=== PATIENT | female | born 1995 | race Caucasian/White ===

== ENCOUNTER 2019-10-10 08:00 | Inpatient (IN) | payer OTHER ==
--- NOTE | 2019-10-10 09:14 | HP ---
Past Medical History - Admission Chief Complaint: 24 yo here for inductrion grade 3 placenta. History Source: Patient Limitations to Obtaining History: No Limitations - Past Surgical History Past Surgical History: Yes: None Hx Myomectomy: No Hx Transabdominal Cerclage: No - Smoking History Smoking history: Never smoked Have you smoked in the past 12 months: No - Alcohol/Substance Use Hx Alcohol Use: No Home Medications - Allergies Allergies/Adverse Reactions: Allergies Allergy/AdvReac Type Severity Reaction Status Date / Time No Known Allergies Allergy Verified 10/10/19 08:31 - Home Medications Home Medications: Ambulatory Orders Vitamins (Sjr) - 1 tab PO DAILY 10/10/19 Review of Systems - Review of Systems Constitutional: reports: No Symptoms Eyes: reports: No Symptoms HENT: reports: No Symptoms Neck: reports: No Symptoms Cardiovascular: reports: No Symptoms Respiratory: reports: No Symptoms Gastrointestinal: reports: No Symptoms Genitourinary: reports: No Symptoms Breasts: reports: No Symptoms Reported Musculoskeletal: reports: No Symptoms Integumentary: reports: No Symptoms Neurological: reports: No Symptoms Endocrine: reports: No Symptoms Hematology/Lymphatic: reports: No Symptoms Psychiatric: reports: No Symptoms Assessment/Plan imp IUP at 39+ weeks grade 3 placenta plan induction of labor.
[2019-10-10] MEDS ORDERED: DINOPROSTONE 10 MG VAGINAL SUPPOSITORY VG ONE (09:16)
[2019-10-10] MEDS: ELECTROLYTE-148 SOLN 1,000 ML IV SCH (10:00)
[2019-10-10 10:10] VITALS: BMI 29.6
[2019-10-10 10:42] LABS: BASO % 0.3 % (0-2.0); HEMATOCRIT 35.6 % (32.4-45.2); HEMOGLOBIN 12.4 GM/dL (10.7-15.3); LYMPH % 21.6 % (8-40); MCH 34.5 pg (25.7-33.7); MCHC 34.9 g/dl (32.0-36.0); MEAN CELL VOLUME 98.8 fl (80-96); MEAN PLT VOLUME 8.7 fl (7.5-11.1); MONO % 8.1 % (3.8-10.2); PLATELET COUNT 150 K/MM3 (134-434); RBC 3.61 M/mm3 (3.60-5.2); RDW 13.1 % (11.6-15.6); WHITE BLOOD COUNT 8.2 K/mm3 (4.0-10.0)
[2019-10-10 10:47] LABS: INR 0.91 (0.83-1.09); PROTHROMBIN TIME (PATIENT) 10.7 SEC (9.7-13.0)
[2019-10-10 10:50] LABS: ACTIVATED PTT 25.8 SECONDS (25.2-36.5)
[2019-10-10] MEDS ORDERED: OXYTOCIN 20 UNITS in 0.9% NS 20 UNIT/1,000 ML INFUS.BAG IV ONE (10:51)
[2019-10-10 11:01] LABS: CALCIUM 8.9 mg/dL (8.5-10.1); CREATININE 0.5 mg/dL (0.55-1.3); POTASSIUM 3.8 mmol/L (3.5-5.1)
[2019-10-10 11:05] LABS: BLOOD UREA NITROGEN 9.5 mg/dL (7-18)
[2019-10-11] MEDS ORDERED: DINOPROSTONE 10 MG VAGINAL SUPPOSITORY VG ONE ×2 (00:40→12:57)
--- NOTE | 2019-10-11 00:50 | PN ---
Progress Note (short form) - Note Progress Note: 24 yo , EGA 39+ weeks with placental insufficiency on cervidil induction VSS, afebrile EFM - Baseline 140/min, moderate variability, accelerations, no decelerations Tocos - Irregular Pelvic - Closed/long/posterior. Plan - Full term gestation on cervidil ripening Cervidil replaced Anticipate vaginal delivery.
[2019-10-11] MEDS ORDERED: PROMETHAZINE HCL 25 MG/1 ML VIAL IVPB ONE ×3 (03:45→23:51)
[2019-10-11] MEDS ORDERED: BUTORPHANOL TARTRATE 1 MG/ML VIAL IVPB ONE ×3 (03:45→23:51)
[2019-10-11] MEDS ORDERED: BUTORPHANOL TARTRATE 2 MG/ML VIAL ONE ×3 (03:55→23:55)
[2019-10-11] MEDS ORDERED: PROMETHAZINE HCL 25 MG/1 ML VIAL ONE ×3 (03:56→23:56)
--- NOTE | 2019-10-11 12:53 | PN ---
Progress Note (short form) - Note Progress Note: 24 y/o at 39+ weeks with grade 3 placenta undergoing IOL. Tracing category 1 Occasional contractions VE: /-3, medium consistency Plan: Cervidil replaced Continue monitoring Reassess
[2019-10-11] MEDS: ELECTROLYTE-148 SOLN 1,000 ML IV SCH (12:57)
[2019-10-11] MEDS ORDERED: OXYTOCIN 30 UNITS in 0.9% NS 30 UNIT/500 ML INFUS.BAG IVPB SCH (23:45)
--- NOTE | 2019-10-11 23:51 | PN ---
Progress Note (short form) - Note Progress Note: 24 y/o at 39+ weeks with grade 3 placenta undergoing IOL. Patient c/o increasing pain. Tracing category 1 Irregular contractions VE: /-3 Plan: Start Pitocin Stadol & phenergan Continue monitoring Reassess
[2019-10-11] MEDS ORDERED: OXYTOCIN 30 UNITS in 0.9% NS 30 UNIT/500 ML INFUS.BAG IVPB ONE (23:56)
[2019-10-12] MEDS ORDERED: LIDOCAINE HCL 1% PRESERVATIVE FREE - 30ML VIAL ONE (05:46)
[2019-10-12] MEDS ORDERED: OXYTOCIN 20 UNITS in 0.9% NS 20 UNIT/1,000 ML INFUS.BAG IV ONE (05:46)
--- NOTE | 2019-10-12 05:56 | PN ---
Progress Note (short form) - Note Progress Note: 24 y/o at 39+ weeks with grade 3 placenta undergoing IOL. Patient c/o rectal pressure. Tracing: FHR 140 bpm, moderate variablity, positive accelerations, occasional variable decelerations Contractions q2-3 min VE: 9/90/0 Plan: Contiue Pitocin Anticipate
[2019-10-12] MEDS: OXYTOCIN 20 UNITS in 0.9% NS 20 UNIT/1,000 ML INFUS.BAG IV SCH (08:10)
[2019-10-12] MEDS ORDERED: IBUPROFEN 600 MG TABLET (FP) PO ONE (08:28)
[2019-10-12] MEDS ORDERED: ACETAMINOPHEN 325 MG TABLET (FP) ONE (08:28)
[2019-10-12] MEDS: ACETAMINOPHEN 325 MG TABLET (FP) PO PRN (08:35)
[2019-10-12] MEDS: IBUPROFEN 600 MG TABLET (FP) PO PRN (08:35)
[2019-10-12] MEDS ORDERED: BENZOCAINE 28 GM HEMORRHOIDAL OINTMENT TP PRN (08:46)
[2019-10-12] MEDS ORDERED: METHYLERGONOVINE MALEATE 0.2 MG/1 ML AMP IM PRN (08:46)
[2019-10-12] MEDS ORDERED: BISACODYL 10 MG SUPP.RECT RC PRN (08:46)
[2019-10-12] MEDS ORDERED: BENZOCAINE 20% 57 GM BOTTLE TP PRN (08:46)
[2019-10-12] MEDS ORDERED: WITCH HAZEL 50% (TUCKS) 40 PAD/JAR PAD TP PRN (08:46)
--- NOTE | 2019-10-12 08:46 | PN ---
Delivery - Delivery Vaginal Delivery: No Problems Type of Anesthesia: None Episiotomy/Laceration: 1st degree EBL (cc): 300 Delivery, Single - Stages of Labor Placenta: Yes: Spontaneous - Condition of Infant Infant Gender: Male Position: Left, OA - 1 Minute Total Score: 9 5 Minutes Total Score: 9 - Feeding Plan Initial Plan: Elected not to breastfeed exclusively throughout hospitalization
[2019-10-12] MEDS ORDERED: diphenhydrAMINE HCL 25 MG CAPSULE (FP) PO ONE ×2 (10:55→15:00)
[2019-10-12] MEDS: PRENATAL VITAMINS W/ FOLIC ACID TABLET (FP) PO SCH (11:28)
[2019-10-13 07:58] LABS: BASO % 0.2 % (0-2.0); EOS % 0.6 % (0-4.5); HEMATOCRIT 30.8 % (32.4-45.2); HEMOGLOBIN 10.5 GM/dL (10.7-15.3); LYMPH % 15.5 % (8-40); MCH 33.5 pg (25.7-33.7); MEAN CELL VOLUME 98.7 fl (80-96); MEAN PLT VOLUME 8.2 fl (7.5-11.1); MONO % 5.7 % (3.8-10.2); PLATELET COUNT 140 K/MM3 (134-434); RBC 3.12 M/mm3 (3.60-5.2); RDW 13.1 % (11.6-15.6); WHITE BLOOD COUNT 11.7 K/mm3 (4.0-10.0)
--- NOTE | 2019-10-13 09:14 | PN ---
Progress Note (short form) - Note Progress Note: PPD#1: patient comfortable; s/p afebrile abdomen soft; non tender, firm lochia normal I/P: doing well; home in am; baby staying till tomorrow
[2019-10-13] MEDS: PRENATAL VITAMINS W/ FOLIC ACID TABLET (FP) PO SCH (09:49)
[2019-10-13] MEDS: IBUPROFEN 600 MG TABLET (FP) PO PRN (10:37)
[2019-10-13] MEDS: ACETAMINOPHEN 325 MG TABLET (FP) PO PRN (10:38)
[2019-10-13] MEDS: OXYTOCIN 20 UNITS in 0.9% NS 20 UNIT/1,000 ML INFUS.BAG IV SCH (12:00)
[2019-10-13] MEDS ORDERED: SENNOSIDES/DOCUSATE COMBO (SENNA PLUS) TABLET (UD) PO PRN (22:00)
[2019-10-14] MEDS: IBUPROFEN 600 MG TABLET (FP) PO PRN (08:06)
[2019-10-14] MEDS: ACETAMINOPHEN 325 MG TABLET (FP) PO PRN (08:06)
[2019-10-14] MEDS: PRENATAL VITAMINS W/ FOLIC ACID TABLET (FP) PO SCH (10:18)
[2019-10-14 10:47] VITALS: BP 107/69; PULSE 96; TEMP 97.8
--- NOTE | 2019-10-14 12:16 | PN ---
Post Progress Note Type of Delivery: Vital Signs: Vital Signs Temperature 97.8 F 10/14/19 10:00 Pulse Rate 96 H 10/14/19 10:00 Respiratory Rate 18 10/14/19 10:00 Blood Pressure 107/69 10/14/19 10:00 O2 Sat by Pulse Oximetry (%) 99 10/12/19 10:15 Breast Exam: Yes: Soft Uterus: Yes: Fundus Firm, Fundus below umbilicus, Non-tender Abdomen/GI: Yes: Abdomen soft, Tolerating PO Lochia: Yes: Rubra Lochia, amount: Small Extremities: Yes: Calves non-tender Perineum: Yes: Episiotomy Activity: Ambulating - Labs Labs: CBC WBC 11.7 K/mm3 (4.0-10.0) H 10/13/19 07:28 RBC 3.12 M/mm3 (3.60-5.2) L 10/13/19 07:28 Hgb 10.5 GM/dL (10.7-15.3) L 10/13/19 07:28 Hct 30.8 % (32.4-45.2) L 10/13/19 07:28 MCV 98.7 fl (80-96) H 10/13/19 07:28 MCH 33.5 pg (25.7-33.7) 10/13/19 07:28 MCHC 34.0 g/dl (32.0-36.0) 10/13/19 07:28 RDW 13.1 % (11.6-15.6) 10/13/19 07:28 Plt Count 140 K/MM3 (134-434) 10/13/19 07:28 MPV 8.2 fl (7.5-11.1) 10/13/19 07:28 Absolute Neuts (auto) 9.1 K/mm3 (1.5-8.0) H 10/13/19 07:28 Neutrophils % 78.0 % (42.8-82.8) 10/13/19 07:28 Lymphocytes % 15.5 % (8-40) D 10/13/19 07:28 Monocytes % 5.7 % (3.8-10.2) 10/13/19 07:28 Eosinophils % 0.6 % (0-4.5) 10/13/19 07:28 Basophils % 0.2 % (0-2.0) 10/13/19 07:28 Nucleated RBC % 0 % (0-0) 10/13/19 07:28 Assessment/Plan S/P , ppd # 2, stable Discharge home
--- NOTE | 2019-10-14 12:20 | DS ---
Physical Exam-[facility] Vital Signs: Vital Signs Temperature 97.8 F 10/14/19 10:00 Pulse Rate 96 H 10/14/19 10:00 Respiratory Rate 18 10/14/19 10:00 Blood Pressure 107/69 10/14/19 10:00 O2 Sat by Pulse Oximetry (%) 99 10/12/19 10:15 Constitutional: Yes: Well Nourished Eyes: Yes: WNL HENT: Yes: WNL Neck: Yes: WNL Cardiovascular: Yes: WNL Respiratory: Yes: WNL Gastrointestinal: Yes: WNL Renal/: Yes: WNL Pelvis: Yes: WNL External Genitalia: Yes: Normal Vaginal Exam: Yes: Normal Cervix: Yes: Normal Uterus: Yes: Normal Adnexa: Normal: Bilateral ....Post : Yes: Uterus firm Breast(s): Yes: WNL Musculoskeletal: Yes: WNL Extremities: Yes: WNL Edema: No Integumentary: Yes: WNL Neurological: Yes: WNL ...Motor Strength: WNL Psychiatric: Yes: WNL Labs: CBC, BMP 10/13/19 07:28 10/10/19 09:52 Delivery - Delivery Vaginal Delivery: No Problems, Spontaneous Type of Anesthesia: None Episiotomy/Laceration: 1st degree EBL (cc): 300 Delivery, Single - Stages of Labor Date 1st Stage Initiatied: 10/11/19 Time 1st Stage Initiated: 12:00 Date 2nd Stage Initiated: 10/12/19 Time 2nd Stage Initiated: 06:40 Date of Delivery: 10/12/19 Time of Delivery: 08:05 Time Placenta Delivered: 08:10 Placenta: Yes: Spontaneous - 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
== END 2019-10-14 13:50 | disposition home or self-care (01) | DRG 560 ==
LOC: JLDR 08:00 → J3W 10-12 14:30
PROVIDERS: ADMIT Specialist; ATTEND Specialist
PROC: 3E0P7VZ Introduction of Hormone into Female Reproductive, Via Natural or Artificial Opening (ICD-10-PCS; 2019-10-11)
PROC: 10E0XZZ Delivery of Products of Conception, External Approach (ICD-10-PCS; principal; 2019-10-12)
DX: O43.213 Placenta accreta, third trimester (principal); O48.0 Post-term pregnancy; Z3A.40 40 weeks gestation of pregnancy; Z37.0 Single live birth; O70.0 First degree perineal laceration during delivery
CPT/HCPCS: 36415; 59409; 80048; 85025; 85610; 85730; 86780; 86850; 86900; 86901; U0003